=== PATIENT | female | born 1995 | race African-American/Black ===

== ENCOUNTER 2017-05-14 16:55 | Emergency (ER) | payer OTHER, MEDICAID ==
[~2017-05-14] VITALS: Ht 160 cm; Wt 61.5 kg
[~2017-05-14 16:55] MED LIST: FERR-43 PO
[2017-05-14 19:45] VITALS: BP 117/77
== END 2017-05-14 21:30 | disposition left against medical advice (07) ==
LOC: ER 21:26
DX: S40.862A Insect bite (nonvenomous) of left upper arm, initial encounter (principal); Z53.21 Procedure and treatment not carried out due to patient leaving prior to being seen by health care provider; W57.XXXA Bitten or stung by nonvenomous insect and other nonvenomous arthropods, initial encounter; Y93.89 Activity, other specified; Y92.89 Other specified places as the place of occurrence of the external cause; Y99.8 Other external cause status

== ENCOUNTER 2018-04-04 13:58 | Emergency (ER) | payer OTHER, MEDICAID ==
[~2018-04-04] VITALS: Ht 160 cm; Wt 60.0 kg
[2018-04-04 14:54] LABS: HEMATOCRIT. 35.6 % (36.0-48.0); HEMOGLOBIN. 11.3 g/dL (12.0-16.0); MEAN CORPUSCULAR HEMOGLOBIN 23.7 pg (28.0-32.0); MEAN CORPUSCULAR VOLUME 74.8 fL (81.0-99.0); MEAN PLATELET VOLUME 7.9 fl (7.4-10.4); PLATELET 238 x1000/uL (130-400); RED BLOOD CELL COUNT 4.76 mill/uL (4.2-5.4); RED CELL DISTRIBUTION WIDTH 17.4 % (11.6-14.6)
[2018-04-04 15:01] LABS: CHLORIDE 105 mEq/L (98-107)
[2018-04-04 15:02] LABS: *AMPHETAMINES SCREEN URINE NEGATIVE (NEGATIVE); *BARBITURATES SCREEN URINE NEGATIVE (NEGATIVE); *BENZODIAZEPINES SCREEN URINE NEGATIVE (NEGATIVE); OPIATES URINE SCREEN NEGATIVE (NEGATIVE); PHENCYCLIDINE URINE SCREEN NEGATIVE (NEGATIVE)
[2018-04-04 15:03] LABS: *COCAINE SCREEN URINE NEGATIVE (NEGATIVE)
[2018-04-04 15:04] LABS: CANNABINOID URINE SCREEN PRESUMTIVE POSITIVE (NEGATIVE); METHADONE URINE SCREEN NEGATIVE (NEGATIVE)
[2018-04-04 15:10] LABS: T4 FREE 1.01 ng/dL (0.76-1.46)
[2018-04-04 16:17] LABS: PLATELET ESTIMATE NORMAL
[2018-04-04 16:27] VITALS: BP 109/62
== END 2018-04-04 16:35 | disposition home or self-care (01) ==
LOC: ER 16:35
DX: O99.02 Anemia complicating childbirth (principal); D50.9 Iron deficiency anemia, unspecified; F12.10 Cannabis abuse, uncomplicated; F17.200 Nicotine dependence, unspecified, uncomplicated; J45.909 Unspecified asthma, uncomplicated; R00.2 Palpitations; Z3A.01 Less than 8 weeks gestation of pregnancy; Z37.9 Outcome of delivery, unspecified; Z79.899 Other long term (current) drug therapy
CPT/HCPCS: 36415; 71045; 80048; 80305; 81025; 84439; 84443; 84484; 85025; 99285

== ENCOUNTER 2018-10-12 18:56 | Observation (INO) | payer OTHER, MEDICAID ==
[~2018-10-12] VITALS: Ht 160 cm; Wt 81.2 kg
[2018-10-12] MEDS ORDERED: ACETAMINOPHEN 325MG TABLET PO NR (20:00)
[2018-10-12 20:09] LABS: CLARITY URINE CLEAR (CLEAR); COLOR URINE YELLOW (YELLOW); KETONES URINE NEGATIVE (NEGATIVE); LEUKOCYTE ESTERASE URINE 2+ (NEGATIVE); NITRITE URINE NEGATIVE (NEGATIVE); OCCULT BLOOD URINE NEGATIVE (NEGATIVE); PH URINE 6.5 (4.5-8.0); PROTEIN URINE NEGATIVE (NEGATIVE); SPECIFIC GRAVITY URINE 1.009 (1.005-1.030); UROBILINOGEN URINE 0.2 E.U./dL (0.2-1.0)
[2018-10-12] MEDS ORDERED: PNV1TABL50 MT (20:51)
[2018-10-12] MEDS ORDERED: LACTATED RINGERS 1,000 ML IV ONE (21:00)
[2018-10-12] MEDS ORDERED: CEFAZOLIN 2,000 MG in DEXT 5% WATER 100 ML IV NR (21:00)
== END 2018-10-12 22:45 | disposition home or self-care (01) ==
LOC: 8 EST LDRP 18:56
PROVIDERS: ADMIT Obstetrics & Gynecology; ATTEND Obstetrics & Gynecology
DX: O26.893 Other specified pregnancy related conditions, third trimester (principal); R10.30 Lower abdominal pain, unspecified; Z3A.33 33 weeks gestation of pregnancy
CPT/HCPCS: 81003; 96365; 99281; G0378; J0690; 96360; 96361; J7060

== ENCOUNTER 2018-12-02 05:24 | Inpatient (IN) | payer OTHER, MEDICAID ==
[~2018-12-02] VITALS: Ht 160 cm; Wt 82.1 kg
[~2018-12-02 05:24] MED LIST changes: +PNV1TABL50 MT
[2018-12-02] MEDS ORDERED: DEXT 5%/LR + PITOCIN 20UNITS/L 1,000 ML IV SCH (06:31)
[2018-12-02] MEDS ORDERED: CARBOPROST TROMETHAMINE 250 MCG/ML AMPUL IM PRN (06:45)
[2018-12-02] MEDS ORDERED: METHYLERGONOVINE MALEATE 0.2 MG/ML IM PRN (06:45)
[2018-12-02] MEDS ORDERED: MISOPROSTOL 100MCG TABLET VG SCH (06:45)
[2018-12-02] MEDS ORDERED: LIDOCAINE HCL 1% 20ML VIAL (Pyxis) INJ INFIL SCH (06:45)
[2018-12-02] MEDS ORDERED: AMPICILLIN 2,000 MG in SODIUM CHLORIDE 0.9% 100 ML IV SCH (06:45)
[2018-12-02] MEDS ORDERED: NALOXONE HCL 0.4 MG/ML 1ML VIAL IM PRN (06:45)
[2018-12-02] MEDS ORDERED: BUTORPHANOL TARTRATE 2 MG/ML VIAL IV PRN (06:45)
[2018-12-02] MEDS: MISOPROSTOL 100MCG TABLET VG PRN ×3 (07:30→18:07)
[2018-12-02 07:34] LABS: BASOPHILS % 0.4 % (0.0-2.0); EOSINOPHILS % 0.9 % (0.0-5.0); HEMATOCRIT. 36.9 % (36.0-48.0); HEMOGLOBIN. 12.2 g/dL (12.0-16.0); MEAN CORPUSCULAR HEMOGLOBIN 28.3 pg (28.0-32.0); MEAN CORPUSCULAR VOLUME 85.6 fL (81.0-99.0); MEAN PLATELET VOLUME 8.9 fl (7.4-10.4); MONOCYTES % 14.5 % (2.0-8.0); NEUTROPHILS % 64.2 % (40.0-76.0); PLATELET 172 x1000/uL (130-400); RED BLOOD CELL COUNT 4.31 mill/uL (4.2-5.4)
[2018-12-02 07:36] LABS: INR 0.9; PARTIAL THROMBOPLASTIN TIME 29.9 sec (23.4-31.0); PROTHROMBIN TIME 9.3 sec (9.1-11.1)
[2018-12-02 07:41] LABS: CLARITY URINE CLEAR (CLEAR); COLOR URINE YELLOW (YELLOW); KETONES URINE NEGATIVE (NEGATIVE); LEUKOCYTE ESTERASE URINE 3+ (NEGATIVE); NITRITE URINE NEGATIVE (NEGATIVE); OCCULT BLOOD URINE NEGATIVE (NEGATIVE); PH URINE 6.5 (4.5-8.0); PROTEIN URINE NEGATIVE (NEGATIVE); SPECIFIC GRAVITY URINE 1.017 (1.005-1.030)
[2018-12-02 09:01] LABS: *AMPHETAMINES SCREEN URINE NEGATIVE (NEGATIVE); *BARBITURATES SCREEN URINE NEGATIVE (NEGATIVE); *BENZODIAZEPINES SCREEN URINE NEGATIVE (NEGATIVE); *COCAINE SCREEN URINE NEGATIVE (NEGATIVE); CANNABINOID URINE SCREEN NEGATIVE (NEGATIVE); METHADONE URINE SCREEN NEGATIVE (NEGATIVE); OPIATES URINE SCREEN NEGATIVE (NEGATIVE); PHENCYCLIDINE URINE SCREEN NEGATIVE (NEGATIVE)
[2018-12-02] MEDS: DEXT 5%/LACTATED RINGERS 1,000 ML IV SCH ×3 (09:55→16:32)
[2018-12-02 11:09] LABS: HEPATITIS B SURFACE ANTIGEN NEGATIVE
[2018-12-02] MEDS: AMPICILLIN 1,000 MG in SODIUM CHLORIDE 0.9% 50 ML IV SCH ×2 (13:43→19:27)
[2018-12-02] MEDS ORDERED: BUPIVACAINE HCL/NS/PF EPIDURAL 100 ML EP ONE (23:15)
[2018-12-03] MEDS ORDERED: LACTATED RINGERS 1,000 ML IV SCH (00:45)
[2018-12-03] MEDS: AMPICILLIN 1,000 MG in SODIUM CHLORIDE 0.9% 50 ML IV SCH (00:59)
[2018-12-03] MEDS: DEXT 5%/LACTATED RINGERS 1,000 ML IV SCH (03:11)
[2018-12-03] MEDS ORDERED: DEXT 5%/LR + PITOCIN 20UNITS/L 1,000 ML IV SCH (06:57)
[2018-12-03] MEDS ORDERED: ACETAMINOPHEN WITH CODEINE 300/30MG TABLET PO PRN (07:00)
[2018-12-03] MEDS ORDERED: BENZOCAINE/LANOLIN/ALOE VERA SPRAY TOP PRN (07:00)
[2018-12-03] MEDS ORDERED: IBUPROFEN 400MG TABLET PO PRN (07:00)
[2018-12-03] MEDS ORDERED: RHO(D) IMMUNE GLOBULIN 300 MCG/SYR IM PRN (07:00)
[2018-12-03 10:30] VITALS: BP 110/72
[2018-12-03 11:00] VITALS: BP 100/63
[2018-12-03] MEDS: IBUPROFEN 800MG TABLET PO PRN (13:21)
[2018-12-03 16:00] VITALS: BP 115/43
[2018-12-03 20:00] VITALS: BP 112/60
[2018-12-03 22:00] VITALS: BP 114/58
[2018-12-04 01:00] VITALS: BP 104/56
[2018-12-04] MEDS: IBUPROFEN 800MG TABLET PO PRN ×2 (01:00→23:39)
[2018-12-04 05:22] VITALS: BP 104/56
[2018-12-04 06:04] LABS: BASOPHILS % 0.5 % (0.0-2.0); EOSINOPHILS % 1.5 % (0.0-5.0); HEMATOCRIT. 30.2 % (36.0-48.0); HEMOGLOBIN. 9.9 g/dL (12.0-16.0); LYMPHOCYTES % 20.8 % (20.0-50.0); MEAN CORPUSCULAR HEMOGLOBIN 28.2 pg (28.0-32.0); MEAN CORPUSCULAR VOLUME 85.7 fL (81.0-99.0); MEAN PLATELET VOLUME 8.7 fl (7.4-10.4); MONOCYTES % 12.4 % (2.0-8.0); NEUTROPHILS % 64.8 % (40.0-76.0); PLATELET 147 x1000/uL (130-400); RED BLOOD CELL COUNT 3.53 mill/uL (4.2-5.4); RED CELL DISTRIBUTION WIDTH 14.5 % (11.6-14.6)
[2018-12-04 07:59] VITALS: BP 121/76
[2018-12-04 16:16] VITALS: BP 125/72
[2018-12-04 20:00] VITALS: BP 112/68
[2018-12-04 22:00] VITALS: BP 123/64
[2018-12-05 04:00] VITALS: BP 125/60
[2018-12-05 07:48] VITALS: BP 107/58
== END 2018-12-05 12:50 | disposition home or self-care (01) | DRG 807 ==
LOC: OBSVTOIN 05:24 → 8 EST LDRP 05:24 → 8EST 12-03 12:42
PROVIDERS: ADMIT Obstetrics & Gynecology; ATTEND Obstetrics & Gynecology
PROC: 0KQM0ZZ Repair Perineum Muscle, Open Approach (ICD-10-PCS; principal; 2018-12-03)
PROC: 10E0XZZ Delivery of Products of Conception, External Approach (ICD-10-PCS; 2018-12-03)
PROC: 3E0R3BZ Introduction of Anesthetic Agent into Spinal Canal, Percutaneous Approach (ICD-10-PCS; 2018-12-03)
PROC: 00HU33Z Insertion of Infusion Device into Spinal Canal, Percutaneous Approach (ICD-10-PCS; 2018-12-03)
PROC: 10907ZC Drainage of Amniotic Fluid, Therapeutic from Products of Conception, Via Natural or Artificial Opening (ICD-10-PCS; 2018-12-03)
DX: O99.824 Streptococcus B carrier state complicating childbirth (principal); Z37.0 Single live birth; O23.13 Infections of bladder in pregnancy, third trimester; O90.81 Anemia of the puerperium; O70.1 Second degree perineal laceration during delivery; D64.9 Anemia, unspecified; Z3A.40 40 weeks gestation of pregnancy
CPT/HCPCS: 36415; 80305; 86592; 86593; 86703; 86762; 86780; 86850; 86900; 87077; 87186; 87340; 99281; G0378; J0290; J2590; J3010; J3490; J7050; J7120; J7121; A4315